=== PATIENT | male | born 1970 | race Caucasian/White ===

== ENCOUNTER 2017-10-26 15:38 | Emergency (ER) | payer OTHER ==
[~2017-10-26] VITALS: Ht 180.3 cm; Wt 81.2 kg
[2017-10-26 15:56] VITALS: BP 152/94
--- NOTE | 2017-10-26 16:00 | NUR ---
PT AMBULATED TO ER BED 12
[2017-10-26] MEDS ORDERED: PIPERACILLIN/TAZOBACTAM 3.375 GM in DEXTROSE 5% 50 ML IV ONE (16:15)
[2017-10-26] MEDS ORDERED: PIPERACILLIN/TAZOBACTAM 3.375 GM VIAL IV ONE (16:18)
[2017-10-26 16:53] LABS: BASOPHILS % (AUTO) 0.3 % (0.0-2.0); EOSINOPHILS # (AUTO) 0.1 K/uL (0-0.4); HEMATOCRIT 49.4 % (36-52); HEMOGLOBIN 16.8 g/dL (12.0-18.0); LYMPHOCYTES # (AUTO) 1.5 K/uL (2.0-11.5); LYMPHOCYTES % (AUTO) 15.7 % (20.5-51.1); MEAN CORPUSCULAR HEMOGLOBIN 30 pg (27-31); MEAN CORPUSCULAR HGB CONC 34 g/dL (33-37); MEAN CORPUSCULAR VOLUME 87.6 fL (80-94); MONOCYTES # (AUTO) 0.6 K/uL (0.8-1.0); MONOCYTES % (AUTO) 6.6 % (1.7-9.3); NEUTROPHILS # (AUTO) 7.4 K/uL (1.8-7.7); NEUTROPHILS % (AUTO) 76.4 % (42.2-75.2); PLATELET COUNT (AUTO) 203 K/uL (140-450); RED BLOOD CELL COUNT(AUTO) 5.65 MIL/uL (4.20-6.10); RED CELL DISTRIBUTION WIDTH 13.2 % (11.6-13.7); WHITE BLOOD COUNT (AUTO) 9.6 K/uL (4.8-10.8)
[2017-10-26 17:04] LABS: CARBON DIOXIDE 31.3 mmol/L (21-32); CREATININE 1.3 mg/dL (0.7-1.3); POTASSIUM 3.3 mmol/L (3.5-5.1)
[2017-10-26 17:08] LABS: ALBUMIN 3.9 g/dL (3.4-5.0); TOTAL BILIRUBIN 0.4 mg/dL (0.0-1.0)
--- NOTE | 2017-10-26 17:19 | NUR ---
PATIENT TAKEN TO CT
--- NOTE | 2017-10-26 17:34 | NUR ---
PATIENT BACK FROM CT
--- NOTE | 2017-10-26 19:15 | NUR ---
PT RESTING COMFORTABLY SITTING IN CHAIR, RR EVEN AND UNLABORED. ALL NEEDS MET.
--- NOTE | 2017-10-26 20:45 | NUR ---
PT RESTING COMFORTABLY IN BED, RR EVEN AND UNLABORED. ALL NEEDS MET. DR HINDS AT BEDSIDE TO SPEAK WITH PT.
[2017-10-26 21:30] VITALS: BP 136/108
--- NOTE | 2017-10-26 21:30 | NUR ---
Patient discharged with v/s stable. Written and verbal after care instructions given and explained. Patient alert, oriented and verbalized understanding of instructions. Ambulatory with steady gait. All questions addressed prior to discharge. ID band removed. Patient advised to follow up with PMD. Rx of IBUPROFEN 600MG, NORCO 5MG-325MG given, instructed to get OTC COLACE 100MG PER MD. Patient educated on indication of medication including possible reaction and side effects. Opportunity to ask questions provided and answered.
== END 2017-10-26 21:30 | disposition home or self-care (01) ==
LOC: MED 15:38
DX: K42.9 Umbilical hernia without obstruction or gangrene (principal); I10 Essential (primary) hypertension
CPT/HCPCS: 36415; 74177; 80053; 85025; 85610; 85730; 96365; 99285; J2543; J7060; Q9967

== ENCOUNTER 2023-11-24 16:12 | Emergency (ER) | payer OTHER ==
[~2023-11-24] VITALS: Ht 180.3 cm; Wt 102.1 kg
[2023-11-24 16:26] VITALS: BP 132/83; PULSE 59; RESP 18; TEMP 98.4; O2SAT 96
[2023-11-24 18:11] VITALS: BP 143/81; PULSE 60; RESP 18; TEMP 98.4; O2SAT 96
[2023-11-24] MEDS ORDERED: SULF-59 PO (18:43)
[2023-11-24] MEDS: LIDOCAINE MPF 1% 10 MG/ML VIAL INJ ONE (18:43)
[2023-11-24] MEDS ORDERED: IBUP-1842 PO (18:43)
== END 2023-11-24 19:00 | disposition home or self-care (01) ==
LOC: MED 16:12
DX: L02.412 Cutaneous abscess of left axilla (principal); I10 Essential (primary) hypertension; E78.5 Hyperlipidemia, unspecified; E03.9 Hypothyroidism, unspecified; Z79.1 Long term (current) use of non-steroidal anti-inflammatories (NSAID); Z79.899 Other long term (current) drug therapy
CPT/HCPCS: 10060; 99283; J2001

== ENCOUNTER 2023-11-26 12:31 | Emergency (ER) | payer OTHER ==
[~2023-11-26] VITALS: Ht 177.8 cm; Wt 102.1 kg
[~2023-11-26 12:31] MED LIST: IBUP-1842 PO; SULF-59 PO
[2023-11-26 12:38] VITALS: BP 133/88; PULSE 63; RESP 18; TEMP 96.9; O2SAT 95
== END 2023-11-26 13:22 | disposition home or self-care (01) ==
LOC: MED 12:31
DX: L02.412 Cutaneous abscess of left axilla (principal); I10 Essential (primary) hypertension; Z48.00 Encounter for change or removal of nonsurgical wound dressing; Z79.899 Other long term (current) drug therapy
CPT/HCPCS: 99281

== ENCOUNTER 2023-11-29 13:51 | Emergency (ER) | payer OTHER ==
[~2023-11-29] VITALS: Ht 177.8 cm; Wt 147.9 kg
[2023-11-29 14:17] VITALS: BP 130/71; PULSE 63; RESP 19; TEMP 98.1; O2SAT 96
== END 2023-11-29 15:30 | disposition home or self-care (01) ==
LOC: MED 13:51
DX: L02.412 Cutaneous abscess of left axilla (principal); Z48.00 Encounter for change or removal of nonsurgical wound dressing; I10 Essential (primary) hypertension; Z79.899 Other long term (current) drug therapy
CPT/HCPCS: 99281